=== PATIENT | female | born 1950 | race Caucasian/White ===

== ENCOUNTER 2019-01-05 11:29 | Emergency (ER) | payer MEDICARE, BC ==
--- NOTE | 2019-01-05 11:33 | UC ---
Upper Extremity HPI - HPI Summary HPI Summary: 68 yo female presents with LEFT wrist and hand pain for 3 weeks. She tells me that about 3 weeks ago she tripped and fell in her garage and landed with her left hand outstretched. Had some pain and swelling in her left wrist that has persisted since that time and hasn't improved much. She is right handed. Denies numbness or tingling. - History of Current Complaint Stated Complaint: L ARM INJURY Time Seen by Provider: 01/05/19 11:33 Hx Obtained From: Patient Severity Initially: Moderate Severity Currently: Mild Pain Intensity: 4 Pain Scale Used: 0-10 Numeric - Allergies/Home Medications Allergies/Adverse Reactions: Allergies Allergy/AdvReac Type Severity Reaction Status Date / Time No Known Allergies Allergy Verified 01/05/19 11:45 Home Medications: Home Medications Atorvastatin* [Lipitor 40 MG*] 1 tab PO DAILY 01/05/19 [History Confirmed ] Famotidine TAB* [Pepcid 20 MG TAB*] 1 tab PO DAILY 01/05/19 [History Confirmed 01/05/19] Ramipril 1 tab PO DAILY 01/05/19 [History Confirmed 01/05/19] Review of Systems All Other Systems Reviewed And Are Negative: Yes Constitutional: Positive: Negative Skin: Positive: Negative Respiratory: Positive: Negative Cardiovascular: Positive: Negative Neurovascular: Positive: Negative Musculoskeletal: Positive: Other: - Left wrist pain Neurological: Positive: Negative Psychological: Positive: Negative Physical Exam - Summary Physical Exam Summary: GENERAL: NAD. WDWN. No pain distress. SKIN: No rashes, sores, lesions, or open wounds. CHEST: No accessory muscle use. Breathing comfortably and in no distress. CV: Pulses intact radial and ulnar. Cap refill <2seconds MSK: LEFT wrist: NTTP. Mild edema about wrist. Pain with ulnar and radial deviation. Flexion and extension intact. Strength 5/5 including serger strength. No snuffbox tenderness. Left hand: FROM all digits. NTTP. Left forearm: NTTP no edema. No bony deformity. NEURO: Alert. Sensations intact hand and all fingers. PSYCH: Age appropriate behavior. Triage Information Reviewed: Yes Vital Signs: Vital Signs: Temp Pulse Resp BP Pulse Ox 0 F 67 16 151/71 99 01/05/19 11:41 01/05/19 11:41 01/05/19 11:41 01/05/19 11:41 01/05/19 11:41 Vital Signs Reviewed: Yes Upper Extremity Course/Dx - Course Course Of Treatment: XR: IMPRESSION: NO FRACTURE OF THE WRIST IS NOTED. IMPRESSION: No fracture of the left hand is noted. Discussed results with pt. Suspect wrist sprain with possible tendon/ligament injury given her continued discomfort. Will refer her to Orthopedics for further evaluation. She was given a cock-up splint to use for support and comfort. - Differential Dx/Diagnosis Provider Diagnosis: Left wrist sprain Discharge - Sign-Out/Discharge Documenting (check all that apply): Patient Departure All imaging exams completed and their final reports reviewed: Yes - Discharge Plan Condition: Stable Disposition: HOME Patient Education Materials: Wrist Sprain (ED) Referrals: Elba Banegas MD [Primary Care Provider] - Albert Madrid MD [Medical Doctor] - As Soon As Possible Additional Instructions: If you develop a fever, shortness of breath, chest pain, new or worsening symptoms - please call your PCP or go to the ED immediately. Your blood pressure was slightly elevated at todays visit. Please see your primary provider within 4 weeks for recheck and re-evaluation. 1) Rest, Ice, and elevate your wrist intermittently throughout the day to reduce pain and swelling 2) Use the cock-up splint as needed for comfort 3) I recommend that you call Orthopedics at the number below to schedule a follow up appointment for further evaluation of your wrist pain - Billing Disposition and Condition Condition: STABLE Disposition: Home
[2019-01-05 11:45] VITALS: BP 151/71
== END 2019-01-05 12:10 | disposition home or self-care (01) ==
LOC: UCEAST 11:29
DX: S63.502A Unspecified sprain of left wrist, initial encounter (principal); W01.0XXA Fall on same level from slipping, tripping and stumbling without subsequent striking against object, initial encounter; Y92.015 Private garage of single-family (private) house as the place of occurrence of the external cause
CPT/HCPCS: 99212; G0463